=== PATIENT | male | born 1985 | race Asian ===

== ENCOUNTER 2023-01-13 06:19 | Day surgery (SDC) | payer OTHER ==
[2022-12-27 11:45] VITALS: BMI 23.7
[2023-01-13] MEDS ORDERED: BUPIVACAINE HCL/PF 0.25% (2.5MG/ML) 10 ML VIAL ONE (07:09)
[2023-01-13] MEDS ORDERED: LIDOCAINE HCL 1%, 10 MG/ML (20ML VIAL) ONE (07:09)
[2023-01-13] MEDS ORDERED: MIDAZOLAM HCL 2 MG/2 ML SINGLE DOSE VIAL ONE (07:11)
[2023-01-13] MEDS ORDERED: PROPOFOL 20 ML ONE ×2 (07:12→08:16)
[2023-01-13] MEDS ORDERED: DEXAMETHASONE SOD PHOSPHATE 4 MG/1 ML VIAL ONE (07:29)
[2023-01-13] MEDS ORDERED: LIDOCAINE HCL 2% (20ML MULTI-DOSE VIAL) ONE (07:29)
[2023-01-13] MEDS ORDERED: DEXAMETHASONE SOD PHOSPHATE/PF 10 MG/ML SDV ONE ×2 (07:29→07:46)
[2023-01-13] MEDS ORDERED: methylPREDNISolone ACET (DEPO) 40 MG/1 ML VIAL ONE (07:45)
[2023-01-13 08:37] VITALS: RESP 16; TEMP 97.7
[2023-01-13 09:21] VITALS: BP 107/69; PULSE 78
[2023-01-13] MEDS ORDERED: oxyCODONE HCL 5 MG TABLET PO PRN (10:02)
[2023-01-13] MEDS ORDERED: LACTATED RINGERS SOLUTION 1,000 ML IV SCH (10:15)
== END 2023-01-13 09:36 | disposition home or self-care (01) ==
LOC: FASU 06:19
PROVIDERS: ATTEND Orthopaedic Surgery
PROC: 3E0133Z Introduction of Anti-inflammatory into Subcutaneous Tissue, Percutaneous Approach (ICD-10-PCS; 2023-01-13)
PROC: 01N50ZZ Release Median Nerve, Open Approach (ICD-10-PCS; principal; 2023-01-13 08:07)
DX: G56.02 Carpal tunnel syndrome, left upper limb (principal)

== ENCOUNTER 2023-02-03 05:57 | Day surgery (SDC) | payer OTHER ==
[2023-01-30 18:49] VITALS: BMI 23.7
[2023-02-03 06:46] VITALS: RESP 16
[2023-02-03] MEDS ORDERED: BUPIVACAINE HCL/PF 0.25% (2.5MG/ML) 10 ML VIAL ONE (07:16)
[2023-02-03] MEDS ORDERED: LIDOCAINE HCL 1%, 10 MG/ML (20ML VIAL) ONE (07:16)
[2023-02-03] MEDS ORDERED: ceFAZolin SODIUM 1 GM VIAL ONE (07:45)
[2023-02-03] MEDS ORDERED: PROPOFOL 20 ML ONE (07:45)
[2023-02-03] MEDS ORDERED: MIDAZOLAM HCL 2 MG/2 ML SINGLE DOSE VIAL ONE (07:45)
[2023-02-03 09:01] VITALS: TEMP 97.6
[2023-02-03 09:03] VITALS: BP 121/75; PULSE 62
== END 2023-02-03 09:15 | disposition home or self-care (01) ==
LOC: FASU 05:57
PROVIDERS: ATTEND Orthopaedic Surgery
PROC: 01N50ZZ Release Median Nerve, Open Approach (ICD-10-PCS; principal; 2023-02-03 08:03)
DX: G56.01 Carpal tunnel syndrome, right upper limb (principal)

== ENCOUNTER 2023-06-02 20:21 | Emergency (ER) | payer OTHER ==
[2023-06-02 20:27] VITALS: BP 113/72; PULSE 75; RESP 18; TEMP 97.7; BMI 23.7
== END 2023-06-02 22:45 | disposition home or self-care (01) ==
LOC: JER 20:21 → JERFT 20:21
DX: H57.11 Ocular pain, right eye (principal); S05.8X1A Other injuries of right eye and orbit, initial encounter; X10.2XXA Contact with fats and cooking oils, initial encounter; Y93.G3 Activity, cooking and baking
CPT/HCPCS: 99283-25

== ENCOUNTER 2023-09-15 16:21 | Emergency (ER) | payer OTHER ==
[2023-09-15] MEDS ORDERED: AMOX TR/POT CLAV 875MG/125MG TABLETS (FP) PO ONE (17:36)
[2023-09-15] MEDS ORDERED: ACETAMINOPHEN 500 MG TABLET (FP) PO ONE (17:39)
[2023-09-15 17:49] VITALS: BP 129/74; PULSE 72; RESP 17; TEMP 98.8; BMI 30.2
[2023-09-15] MEDS ORDERED: AMOX TR/POT CLAV 875MG/125MG TABLETS (FP) ONE (17:51)
[2023-09-15] MEDS ORDERED: ACETAMINOPHEN 500 MG TABLET (FP) ONE (17:51)
== END 2023-09-15 17:56 | disposition home or self-care (01) ==
LOC: FER 16:21
DX: H92.02 Otalgia, left ear (principal); M79.10 Myalgia, unspecified site; R09.81 Nasal congestion; H66.002 Acute suppurative otitis media without spontaneous rupture of ear drum, left ear; R50.9 Fever, unspecified
CPT/HCPCS: 99283-25

== ENCOUNTER 2023-10-03 20:53 | Emergency (ER) | payer OTHER ==
[2023-10-03 20:58] VITALS: BP 128/75; PULSE 82; RESP 17; TEMP 97.8; BMI 22.9
[2023-10-03] MEDS ORDERED: IBUPROFEN 400 MG TABLET (FP) PO ONE ×2 (21:04→21:08)
== END 2023-10-03 21:12 | disposition home or self-care (01) ==
LOC: FER 20:53
DX: H92.02 Otalgia, left ear (principal); H60.502 Unspecified acute noninfective otitis externa, left ear
CPT/HCPCS: 99283-25